=== PATIENT | male | born 1940 | race Caucasian/White ===

== ENCOUNTER → 2020-04-01 12:07 | Outpatient (CLI) | payer MEDICARE, SELFPAY ==
[2020-04-01 13:50] LABS: Prostate Specific Ag, Diagnost 2.43 ng/ml (0.0-4.0)
== END ==
PROVIDERS: Visit Provider Urology
DX: N41.9 Inflammatory disease of prostate, unspecified (principal)
CPT/HCPCS: 36415; 84153

== ENCOUNTER → 2021-03-26 14:05 | Outpatient (CLI) | payer MEDICARE, SELFPAY ==
[2021-03-28 08:30] LABS: PSA, Free 0.92 ng/mL; Prostate Specific Ag 3.4 ng/mL (0.0-4.0)
== END ==
PROVIDERS: Visit Provider Urology
DX: N13.8 Other obstructive and reflux uropathy (principal); N40.1 Benign prostatic hyperplasia with lower urinary tract symptoms; R33.9 Retention of urine, unspecified
CPT/HCPCS: 36415; 84153; 84154